=== PATIENT | female | born 1955 | race African-American/Black ===

== ENCOUNTER 2020-02-23 11:16 | Emergency (ER) | payer BC ==
[~2020-02-23] VITALS: Ht 167.6 cm; Wt 71.8 kg
[2020-02-23] MEDS ORDERED: ONDANSETRON PF 4 MG/2 ML VIAL. IV ONE (12:30)
[2020-02-23] MEDS ORDERED: IV NORMAL SALINE 1000ML BAG 1,000 ML IV ONE (12:30)
[2020-02-23 12:43] LABS: BASO % 1 % (0-3); EOS # 0.1 x10^3/uL (0.0-0.7); EOS % 2 % (0-3); HEMATOCRIT 35.1 % (36.0-47.0); HEMOGLOBIN 11.8 g/dL (12.0-15.5); LYMPH # 1.4 x10^3/uL (1.0-4.8); LYMPH % 21 % (24-48); MEAN CORPUSCULAR HEMOGLOBIN 33 pg (25-35); MEAN CORPUSCULAR HGB CONC 34 g/dL (31-37); MEAN CORPUSCULAR VOLUME 97 fL (79-100); MONO # 0.4 x10^3/uL (0.0-1.1); MONO % 6 % (0-9); NEUT # 4.6 x10^3/uL (1.8-7.7); NEUT % 71 % (31-73); PLATELET COUNT 210 x10^3/uL (140-400); RED BLOOD COUNT 3.63 x10^6/uL (3.50-5.40); RED CELL DISTRIBUTION WIDTH 12.5 % (11.5-14.5); WHITE BLOOD COUNT 6.5 x10^3/uL (4.0-11.0)
[2020-02-23 12:57] LABS: CALCIUM 9.2 mg/dL (8.5-10.1); CREATININE 0.6 mg/dL (0.6-1.0); GFR 121.8; POTASSIUM 4.4 mmol/L (3.5-5.1)
[2020-02-23 13:02] LABS: ALBUMIN 4.2 g/dL (3.4-5.0); ALBUMIN/GLOBULIN RATIO 1.4 (1.0-1.7); MAGNESIUM 1.7 mg/dL (1.8-2.4); TOTAL BILIRUBIN 0.4 mg/dL (0.2-1.0); TOTAL PROTEIN 7.3 g/dL (6.4-8.2)
[2020-02-23 13:39] LABS: BILIRUBIN,URINE NEGATIVE (NEG); CLARITY,URINE CLEAR; COLOR,URINE YELLOW; NITRITE,URINE NEGATIVE (NEG); PH,URINE 7.5 (<5.0-8.0); PROTEIN,URINE NEGATIVE (NEG-TRACE); UROBILINOGEN,URINE 0.2 mg/dL (0.2 mg/dL)
[2020-02-23 13:50] LABS: BACTERIA,URINE MANY /HPF (0-FEW); HYALINE CASTS, URINE OCCASIONAL /HPF; RBC,URINE 0 /HPF (0-2); SQUAMOUS EPITHELIAL CELL,UR FEW /LPF
[2020-02-23] MEDS ORDERED: ONDA4TAB12 PO (15:00)
--- NOTE | 2020-02-23 15:02 | PHYS DOC ---
Past Medical History Past Medical History: Diabetes-Type II, Fibromyalgia, High Cholesterol, Other Additional Past Medical Histor: chronic fatigue syndrome Past Surgical History: Hysterectomy, Other Additional Past Surgical Histo: hemmorid surgery Smoking Status: Former Smoker Alcohol Use: None General Adult EDM: Chief Complaint: NAUSEA/VOMITING/DIARRHA HPI: HPI: Patient is a 65 year old AA female, accompanied by her , who presents the emergency department with complaints of severe nausea and vomiting that began this morning. She states that she vomited twice this morning. She denies any blood in her vomit. She states that she often has problems with nausea and vomiting spells that she can typically get to resolve with home Zofran but states that she is been unable to achieve relief from her vomiting with Zofran today. She denies any shortness of breath, chest pain, fever, cough, dizziness, numbness, tingling, weakness, headache, diarrhea, dysuria, hematuria, or increased urinary frequency. She currently denies any pain, her only complaint is nausea. Review of Systems: Review of Systems: Constitutional: Denies fever or chills. [] HENT: Denies nasal congestion or sore throat. [] Respiratory: Denies cough or shortness of breath. [] Cardiovascular: Denies chest pain or edema. [] GI: See HPI : Denies dysuria. [] Musculoskeletal: Denies back pain or joint pain. [] Integument: Denies rash. [] Neurologic: Denies headache Lymphatic: Denies swollen glands. [] Psychiatric: Denies depression or anxiety. [] Heart Score: Risk Factors: Risk Factors: DM, Current or recent (<one month) smoker, HTN, HLP, family history of CAD, obesity. Risk Scores: Score 0 - 3: 2.5% MACE over next 6 weeks - Discharge Home Score 4 - 6: 20.3% MACE over next 6 weeks - Admit for Clinical Observation Score 7 - 10: 72.7% MACE over next 6 weeks - Early Invasive Strategies Current Medications: Current Medications Medications (Trade) Dose Ordered Sig/Rose Start Time Stop Time Status Last Admin Dose Admin Ondansetron HCl (Zofran) 4 mg 1X ONCE 02/23/20 12:30 02/23/20 12:31 DC 02/23/20 12:37 4 MG Sodium Chloride 1,000 ml @ 1,000 mls/hr 1X ONCE 02/23/20 12:30 02/23/20 13:29 DC 02/23/20 12:36 1,000 MLS/HR Allergies: Allergies: Allergies Coded Allergies Type Severity Reaction Last Updated Verified Sulfa (Sulfonamide Antibiotics) Adverse Reaction Intermediate 02/23/20 Yes lisinopril Adverse Reaction Intermediate 02/23/20 Yes Physical Exam: PE: Constitutional: Well developed, well nourished, no acute distress, non-toxic appearance. [] HENT: Normocephalic, atraumatic, bilateral external ears normal, nose normal. [] Eyes: PERRLA, EOMI, conjunctiva normal, no discharge. [] Neck: Normal range of motion, no stridor. [] Cardiovascular:Heart rate regular rhythm, no murmur Lungs & Thorax: Respirations even and unlabored, no retractions, no respiratory distress, lungs CTA Abdomen: soft, no tenderness, no guarding, bowel sounds active x4 quadrants Back: Nontender, no CVA tenderness Skin: Warm, dry, no erythema, no rash. [] Extremities: No cyanosis, ROM intact, no edema. [] Neurologic: Alert and oriented X 3, no focal deficits noted. [] Psychologic: Affect normal, judgement normal, mood normal. [] Current Patient Data: Labs: Laboratory Tests Test 02/23/20 11:40 02/23/20 13:25 White Blood Count 6.5 x10^3/uL (4.0-11.0) Red Blood Count 3.63 x10^6/uL (3.50-5.40) Hemoglobin 11.8 g/dL (12.0-15.5) L Hematocrit 35.1 % (36.0-47.0) L Mean Corpuscular Volume 97 fL (79-100) Mean Corpuscular Hemoglobin 33 pg (25-35) Mean Corpuscular Hemoglobin Concent 34 g/dL (31-37) Red Cell Distribution Width 12.5 % (11.5-14.5) Platelet Count 210 x10^3/uL (140-400) Neutrophils (%) (Auto) 71 % (31-73) Lymphocytes (%) (Auto) 21 % (24-48) L Monocytes (%) (Auto) 6 % (0-9) Eosinophils (%) (Auto) 2 % (0-3) Basophils (%) (Auto) 1 % (0-3) Neutrophils # (Auto) 4.6 x10^3/uL (1.8-7.7) Lymphocytes # (Auto) 1.4 x10^3/uL (1.0-4.8) Monocytes # (Auto) 0.4 x10^3/uL (0.0-1.1) Eosinophils # (Auto) 0.1 x10^3/uL (0.0-0.7) Basophils # (Auto) 0.0 x10^3/uL (0.0-0.2) Sodium Level 138 mmol/L (136-145) Potassium Level 4.4 mmol/L (3.5-5.1) Chloride Level 103 mmol/L (98-107) Carbon Dioxide Level 27 mmol/L (21-32) Anion Gap 8 (6-14) Blood Urea Nitrogen 14 mg/dL (7-20) Creatinine 0.6 mg/dL (0.6-1.0) Estimated GFR (Cockcroft-Gault) 121.8 BUN/Creatinine Ratio 23 (6-20) H Glucose Level 141 mg/dL (70-99) H Calcium Level 9.2 mg/dL (8.5-10.1) Magnesium Level 1.7 mg/dL (1.8-2.4) L Total Bilirubin 0.4 mg/dL (0.2-1.0) Aspartate Amino Transferase (AST) 21 U/L (15-37) Alanine Aminotransferase (ALT) 26 U/L (14-59) Alkaline Phosphatase 63 U/L (46-116) Total Protein 7.3 g/dL (6.4-8.2) Albumin 4.2 g/dL (3.4-5.0) Albumin/Globulin Ratio 1.4 (1.0-1.7) Lipase 104 U/L (73-393) Urine Collection Type Unknown Urine Color Yellow Urine Clarity Clear Urine pH 7.5 (<5.0-8.0) Urine Specific [place] 1.010 (1.000-1.030) Urine Protein Negative mg/dL (NEG-TRACE) Urine Glucose (UA) Negative mg/dL (NEG) Urine Ketones (Stick) Negative mg/dL (NEG) Urine Blood Negative (NEG) Urine Nitrite Negative (NEG) Urine Bilirubin Negative (NEG) Urine Urobilinogen Dipstick 0.2 mg/dL (0.2 mg/dL) Urine Leukocyte Esterase Trace (NEG) Urine RBC 0 /HPF (0-2) Urine WBC 1-4 /HPF (0-4) Urine Squamous Epithelial Cells Few /LPF Urine Bacteria Many /HPF (0-FEW) Urine Hyaline Casts Occasional /HPF Urine Mucus Slight /LPF Laboratory Tests 02/23/20 11:40 Laboratory Tests 02/23/20 11:40 Vital Signs: Vital Signs Date Time Temp Pulse Resp B/P (MAP) Pulse Ox O2 Delivery O2 Flow Rate FiO2 02/23/20 11:25 97.8 64 18 161/79 (106) 100 Room Air 97.8 EKG: EK-sinus bradycardia rate of 57, no STEMI, read by Dr. Burr[] Radiology/Procedures: Radiology/Procedures: [] Course & Med Decision Making: Course & Med Decision Making Pertinent Labs and Imaging studies reviewed. (See chart for details) Patient is a 65-year-old female who presents to the emergency department with complaints of nausea and vomiting. Work-up included labs, IV fluids, and IV Zofran. CBC revealed a hemoglobin of 11.8, hematocrit of 35.1, otherwise unremarkable; CMP revealed a BUN creatinine ratio of 23, glucose of 141, and magnesium of 1.7, otherwise unremarkable; urinalysis was likely contaminated with few squamous cells and 1-4 white blood cells, patient denied any symptoms. Patient reported feeling better after 1 L of normal saline and 4 mg of Zofran. Recommend clear liquids for 24 hours then advance diet as tolerated starting with brat diet. Return to the ER if symptoms worsen, otherwise follow-up with primary care doctor in 1 to 2 days. Prescription written for Zofran. Patient verbalized an understanding of home care, medications, follow-up, and return to ED instructions and was in agreement with the plan of care. [] Dragon Disclaimer: Leno Disclaimer: This electronic medical record was generated, in whole or in part, using a voice recognition dictation system. Departure Departure Impression: Primary Impression: Nausea & vomiting Qualified Codes: R11.2 - Nausea with vomiting, unspecified Disposition: HOME, SELF-CARE Condition: STABLE Referrals: UNKNOWN PCP NAME (PCP) Patient Instructions: Nausea and Vomiting, [id number] Additional Instructions: Fill prescriptions and use them as directed. Recommend clear fluids for the next 24 hours. Then you may advance to bland foods such as bananas, rice, applesauce, and dry toast. Follow-up with your primary care doctor in the next 1-2 days. Return to the emergency room if your symptoms worsen. Scripts Ondansetron (ONDANSETRON ODT) 4 Mg Tab.rapdis 1 TAB PO PRN Q6-8HRS PRN for NAUSEA/VOMITING for 4 Days, #16 TAB 0 Refills Prov: SHEREEN ALATORRE APRN 02/23/20 Justicifation of Admission Dx: Justifications for Admission: Justification of Admission Dx: N/A SHEREEN ALATORRE APRN Feb 23, 2020 15:02
--- NOTE | 2020-02-23 15:24 | EKG ---
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
[2020-02-23 15:30] VITALS: BP 147/76
== END 2020-02-23 15:30 | disposition home or self-care (01) ==
LOC: ER 11:16
DX: R11.2 Nausea with vomiting, unspecified (principal); E11.9 Type 2 diabetes mellitus without complications; M79.7 Fibromyalgia; E78.00 Pure hypercholesterolemia, unspecified; R53.82 Chronic fatigue, unspecified; Z90.710 Acquired absence of both cervix and uterus; Z87.891 Personal history of nicotine dependence; Z98.890 Other specified postprocedural states; Z88.2 Allergy status to sulfonamides; Z88.6 Allergy status to analgesic agent
CPT/HCPCS: 36415; 80053; 81001; 83690; 83735; 85025; 87086; 93005; 96361; 96374; 99285; J2405; J7030

== ENCOUNTER 2020-07-21 16:50 | Emergency (ER) | payer MEDICARE, BC ==
[~2020-07-21] VITALS: Ht 167.6 cm; Wt 67.0 kg
[~2020-07-21 16:50] MED LIST: ONDA4TAB12 PO
[2020-07-21 18:50] VITALS: BP 188/94
--- NOTE | 2020-07-21 19:43 | RAD ---
EXAM: CT HEAD WITHOUT IV CONTRAST CLINICAL HISTORY: Reason: fall pain / Spl. Instructions: / History: COMPARISON: None. TECHNIQUE: Routine CT of the head without contrast. Soft tissues and bone windows were reviewed. PQRS compliance statement - One or more of the following individualized dose reduction techniques wer e utilized for this study: 1. Automated exposure control 2. Adjustment of the mA and/or kV according to patient size 3. Use of iterative reconstruction technique FINDINGS: There is no evidence of hemorrhage, mass or extra-axial fluid collection. Hernandez-white differentiation is maintained with no evidence of edema. There is no mass effect or shift of the intracranial structures. The ventricles, basilar cisterns and cortical sulci are normal in size and configuration for the marina ents stated age. The cerebellum and brainstem are unremarkable. The calvarium demonstrates no evidence of fracture or focal lesion. There is normal aeration of the visualized paranasal sinuses and mastoid air cells. The visualized portions of the orbits are normal. Soft tissue swelling overlying the right parietal region with scalp hematoma. IMPRESSION: 1. No evidence for acute intracranial process. 2. Soft tissue swelling overlying the right parietal region with scalp hematoma. EXAM: CT CERVICAL SPINE WITHOUT IV CONTRAST CLINICAL HISTORY: Reason: fall pain / Spl. Instructions: / History: COMPARISON: None available. TECHNIQUE: Helical CT of the cervical spine was performed. Axial, coronal and sagittal reformatted im ages were also performed. PQRS compliance statement - One or more of the following individualized dose reduction techniques wer e utilized for this study: 1. Automated exposure control 2. Adjustment of the mA and/or kV according to patient size 3. Use of iterative reconstruction technique FINDINGS: Total body heights are preserved. Straightening of the normal cervical lordosis. Mild C2-3 disc heigh t loss. Moderate C3-4, C5-6 and mild C6-7 disc height loss. Endplate osteophytes are seen at multiple levels most prominent at C3-4, C5-6. IMPRESSION: 1. No acute cervical spine fracture or subluxation. 2. Multilevel degenerative changes of cervical spine. Exam: CT thoracic spine without contrast CT lumbar spine without contrast. CLINICAL HISTORY: Fall, back pain COMPARISON: None available. TECHNIQUE: This CT study consists of contiguous axial images performed through the thoracic and lumba r spine. Sagittal and coronal reformatted images were also performed. PQRS compliance statement - One or more of the following individualized dose reduction techniques wer e utilized for this study: 1. Automated exposure control 2. Adjustment of the mA and/or kV according to patient size 3. Use of iterative reconstruction technique FINDINGS: Thoracic spine: Vertebral body heights are preserved. Mild leftward curvature lumbar spine T7-8. Severe disc height l oss T7-8. Mild disc height loss at a few other levels. No spondylolisthesis. Spiculated right upper lobe lung nodule measures 1.3 cm. Caudal to this is a separate spiculated lesi on measuring 2.1 x 1.1 cm. Spiculated right upper lobe lung nodule measures 7 mm. Calcified gallstone is seen at the gallbladder neck. Lumbar spine: Vertebral body heights are preserved. Disc heights are preserved. Punctate nonobstructing left lower pole renal calculus. Moderate colonic stool content is partially profiled. 2 cm low density lesion of the pancreatic head is partially profiled. IMPRESSION: 1. No evidence for acute thoracic or lumbar spine fracture. 2. Low-density lesion in the pancreatic head measures 2 cm, should be further assessed by MRI. 3. Spiculated lesions in the chest are partially profiled, possibly metastatic disease or infectious /odontoid process and can be further assessed by dedicated CT chest. 4. Cholelithiasis. 5. Nonobstructing left lower pole renal calculus. Electronically signed by: Rufino Castillo MD (07/21/2020 7:40 PM) GROVERBALBIR
--- NOTE | 2020-07-21 20:50 | RAD ---
EXAM: Views Right Shoulder DATE: 07/21/2020 7:32 PM INDICATION: Reason: fall pain / Spl. Instructions: / History: COMPARISON: No Prior FINDINGS: There is no evidence for acute fracture or dislocation. AC joint is congruent. AC joint and glenohume ral joint degenerative changes are seen with small osteophytes. Humeral head is not high riding. IMPRESSION: 1. No acute fracture or dislocation. 2. AC joint and glenohumeral joint degenerative change. Electronically signed by: Rufino Castillo MD (07/21/2020 8:48 PM) EBENEZER
--- NOTE | 2020-07-21 21:41 | PHYS DOC ---
Past Medical History Past Medical History: Diabetes-Type II, Fibromyalgia, High Cholesterol, Other Additional Past Medical Histor: chronic fatigue syndrome Past Surgical History: Hysterectomy, Other Additional Past Surgical Histo: hemmorid surgery Smoking Status: Former Smoker Alcohol Use: None General Adult EDM: Chief Complaint: MECHANICAL FALL HPI: HPI: Patient is a 65 year old female with history of high cholesterol, diabetes type 2, who presents to the ED today to be evaluated after falling. Patient states she was coming out of [place] when she slipped on ice and fell hitting her head on the ground. Denies any loss of consciousness. Complaining of mild pain to posterior occipital. Denies any neck pain, complains of mid as well as low back pain and right scapular pain. Rates the pain as mild and intermittent worse on touching this regions. Denies any pain radiating to bilateral lower extremities. Denies any loss of bowel/bladder function. Review of Systems: Review of Systems: Constitutional: Denies fever or chills. [] Eyes: Denies change in visual acuity. [] HENT: Denies nasal congestion or sore throat. [] Respiratory: Denies cough or shortness of breath. [] Cardiovascular: Denies chest pain or edema. [] GI: Denies abdominal pain, nausea, vomiting, bloody stools or diarrhea. [] : Denies dysuria. [] Musculoskeletal: Reports right shoulder pain, mid and low back pain Integument: Denies rash. [] Neurologic: Reports falling, head pain, denies focal weakness or sensory changes. [] Endocrine: Denies polyuria or polydipsia. [] Lymphatic: Denies swollen glands. [] Psychiatric: Denies depression or anxiety. [] Heart Score: Risk Factors: Risk Factors: DM, Current or recent (<one month) smoker, HTN, HLP, family history of CAD, obesity. Risk Scores: Score 0 - 3: 2.5% MACE over next 6 weeks - Discharge Home Score 4 - 6: 20.3% MACE over next 6 weeks - Admit for Clinical Observation Score 7 - 10: 72.7% MACE over next 6 weeks - Early Invasive Strategies Allergies: Allergies: Allergies Coded Allergies Type Severity Reaction Last Updated Verified Sulfa (Sulfonamide Antibiotics) Adverse Reaction Intermediate 02/23/20 Yes lisinopril Adverse Reaction Intermediate 02/23/20 Yes Physical Exam: PE: Constitutional: Well developed, well nourished, no acute distress, non-toxic appearance. [] HENT: Normocephalic, atraumatic, bilateral external ears normal, oropharynx moist, no oral exudates, nose normal. [] Eyes: PERRLA, EOMI, conjunctiva normal, no discharge. [] Neck: Normal range of motion, no tenderness, supple, no stridor. [] Cardiovascular:Heart rate regular rhythm, no murmur [] Lungs & Thorax: Bilateral breath sounds clear to auscultation [] Abdomen: Bowel sounds normal, soft, no tenderness, no masses, no pulsatile masses. [] Skin: Warm, dry, no erythema, no rash. [] Back: No tenderness, no CVA tenderness. [] Extremities: No tenderness, no cyanosis, no clubbing, ROM intact, no edema. [] Neurologic: Alert and oriented X 3, normal motor function, normal sensory functi on, no focal deficits noted. [] Psychologic: Affect normal, judgement normal, mood normal. [] Current Patient Data: Vital Signs: Vital Signs Date Time Temp Pulse Resp B/P (MAP) Pulse Ox O2 Delivery O2 Flow Rate FiO2 /30/20 18:50 97.8 68 24 188/94 (125) 100 Room Air 97.8 EKG: EKG: [] Radiology/Procedures: Radiology/Procedures: []PROCEDURE: CT HEAD AND CERVICAL SPINE WO EXAM: CT HEAD WITHOUT IV CONTRAST CLINICAL HISTORY: Reason: fall pain / Spl. Instructions: / History: COMPARISON: None. TECHNIQUE: Routine CT of the head without contrast. Soft tissues and bone windows were reviewed. PQRS compliance statement - One or more of the following individualized dose reduction techniques were utilized for this study: 1. Automated exposure control 2. Adjustment of the mA and/or kV according to patient size 3. Use of iterative reconstruction technique FINDINGS: There is no evidence of hemorrhage, mass or extra-axial fluid collection. Hernandez-white differentiation is maintained with no evidence of edema. There is no mass effect or shift of the intracranial structures. The ventricles, basilar cisterns and cortical sulci are normal in size and configuration for the patients stated age. The cerebellum and brainstem are unremarkable. The calvarium demonstrates no evidence of fracture or focal lesion. There is normal aeration of the visualized paranasal sinuses and mastoid air cells. The visualized portions of the orbits are normal. Soft tissue swelling overlying the right parietal region with scalp hematoma. IMPRESSION: 1. No evidence for acute intracranial process. 2. Soft tissue swelling overlying the right parietal region with scalp hematoma. EXAM: CT CERVICAL SPINE WITHOUT IV CONTRAST CLINICAL HISTORY: Reason: fall pain / Spl. Instructions: / History: COMPARISON: None available. TECHNIQUE: Helical CT of the cervical spine was performed. Axial, coronal and sagittal reformatted images were also performed. PQRS compliance statement - One or more of the following individualized dose reduction techniques were utilized for this study: 1. Automated exposure control 2. Adjustment of the mA and/or kV according to patient size 3. Use of iterative reconstruction technique FINDINGS: Total body heights are preserved. Straightening of the normal cervical lordosis. Mild C2-3 disc height loss. Moderate C3-4, C5-6 and mild C6-7 disc height loss. Endplate osteophytes are seen at multiple levels most prominent at C3-4, C5-6. IMPRESSION: 1. No acute cervical spine fracture or subluxation. 2. Multilevel degenerative changes of cervical spine. Exam: CT thoracic spine without contrast CT lumbar spine without contrast. CLINICAL HISTORY: Fall, back pain COMPARISON: None available. TECHNIQUE: This CT study consists of contiguous axial images performed through the thoracic and lumbar spine. Sagittal and coronal reformatted images were also performed. PQRS compliance statement - One or more of the following individualized dose reduction techniques were utilized for this study: 1. Automated exposure control 2. Adjustment of the mA and/or kV according to patient size 3. Use of iterative reconstruction technique FINDINGS: Thoracic spine: Vertebral body heights are preserved. Mild leftward curvature lumbar spine T7-8. Severe disc height loss T7-8. Mild disc height loss at a few other levels. No spondylolisthesis. Spiculated right upper lobe lung nodule measures 1.3 cm. Caudal to this is a separate spiculated lesion measuring 2.1 x 1.1 cm. Spiculated right upper lobe lung nodule measures 7 mm. Calcified gallstone is seen at the gallbladder neck. Lumbar spine: Vertebral body heights are preserved. Disc heights are preserved. Punctate nonobstructing left lower pole renal calculus. Moderate colonic stool content is partially profiled. 2 cm low density lesion of the pancreatic head is partially profiled. IMPRESSION: 1. No evidence for acute thoracic or lumbar spine fracture. 2. Low-density lesion in the pancreatic head measures 2 cm, should be further assessed by MRI. 3. Spiculated lesions in the chest are partially profiled, possibly metastatic disease or infectious/odontoid process and can be further assessed by dedicated CT chest. 4. Cholelithiasis. 5. Nonobstructing left lower pole renal calculus. Electronically signed by: Rufino Castillo MD (07/21/2020 7:40 PM) EBENEZER DICTATED and SIGNED BY: RUFINO CASTILLO MD DATE: 07/21/[id number] 0 PATIENT: DAPHNE SADLER ACCOUNT: [id number] : 1955 LOCATION: ER AGE: 65 SEX: F EXAM STATUS: REG ER ORD. PHYSICIAN: GARLAND ALEXANDER APRN REASON: fall pain PROCEDURE: SHOULDER 2+V RIGHT EXAM: Views Right Shoulder DATE: 07/21/2020 7:32 PM INDICATION: Reason: fall pain / Spl. Instructions: / History: COMPARISON: No Prior FINDINGS: There is no evidence for acute fracture or dislocation. AC joint is congruent. AC joint and glenohumeral joint degenerative changes are seen with small osteophytes. Humeral head is not high riding. IMPRESSION: 1. No acute fracture or dislocation. 2. AC joint and glenohumeral joint degenerative change. Electronically signed by: Rufino Castillo MD (07/21/2020 8:48 PM) EBENEZER DICTATED and SIGNED BY: RUFINO CASTILLO MD DATE: 07/21/200363GLP1 0 Course & Med Decision Making: Course & Med Decision Making Pertinent Labs and Imaging studies reviewed. (See chart for details) This is a 65-year-old female patient who presents to the ED today to be evaluated after falling, patient is complaining of posterior head pain, right clavicle pain, mid and low back pain. CT of the head is negative for any acute findings, CT of the cervical spine is negative. CT of thoracic and lumbar spine were negative for any acute findings, noted for 2 cm pancreatic lesion, also noted for spiculated lesions in the chest are partially profiled, possibly metastatic disease or infectious/odontoid process and can be further assessed by dedicated CT chest. Also noted for cholelithiasis and left renal pelvic calculus. Patient refused any further work-up. Discharged home, she will follow up with her own PCP and she has pain medicine at home Leno Disclaimer: Leno Disclaimer: This electronic medical record was generated, in whole or in part, using a voice recognition dictation system. Departure Departure Impression: Primary Impression: Fall from standing Qualified Codes: W19.XXXA - Unspecified fall, initial encounter Additional Impressions: Closed head injury Qualified Codes: S09.90XA - Unspecified injury of head, initial encounter Shoulder pain, right Qualified Codes: M25.511 - Pain in right shoulder Low back pain Qualified Codes: M54.5 - Low back pain Acute thoracic back pain Qualified Codes: M54.6 - Pain in thoracic spine Cholelithiasis Qualified Codes: K80.20 - Calculus of gallbladder without cholecystitis without obstruction Disposition: 01 DC HOME SELF CARE/HOMELESS Condition: STABLE Referrals: UNKNOWN PCP NAME (PCP) follow up with your doctor in one week RINA CORBIN MD follow up for gall stones Patient Instructions: Cholelithiasis, Contusion, Fall Prevention and Home Safety, Head Injury, Adult, [id number] Additional Instructions: You were evaluated in the emergency room after falling. Your CAT scan of the head neck mid and low back as well as right shoulder x-rays were negative for any acute findings. You noted for lesion in your pancreas as well as your chest, please follow-up with your primary care doctor for further work-up on this lesions. Follow up with the general surgeon for gall stones GARLAND ALEXANDER APRN Jul 21, 2020 21:41
== END 2020-07-21 21:50 | disposition home or self-care (01) ==
LOC: ER 16:50
DX: S09.90XA Unspecified injury of head, initial encounter (principal); K80.20 Calculus of gallbladder without cholecystitis without obstruction; M25.511 Pain in right shoulder; M54.5 Low back pain; M54.6 Pain in thoracic spine; E11.9 Type 2 diabetes mellitus without complications; E78.00 Pure hypercholesterolemia, unspecified; G89.29 Other chronic pain; Z87.891 Personal history of nicotine dependence; Z88.2 Allergy status to sulfonamides; Z88.8 Allergy status to other drugs, medicaments and biological substances; W00.0XXA Fall on same level due to ice and snow, initial encounter; Y93.89 Activity, other specified; Y92.89 Other specified places as the place of occurrence of the external cause; Y99.8 Other external cause status
CPT/HCPCS: 70450; 72125; 72128; 72131; 73030; 99285-25